=== PATIENT | female | born 1970 | race Caucasian/White ===

== ENCOUNTER 2021-08-17 14:17 | Emergency (ER) | payer MEDICARE, OTHER ==
[~2021-08-17] VITALS: Ht 167.6 cm; Wt 61.0 kg
[2021-08-17 14:18] VITALS: BP 154/98
[2021-08-17] MEDS ORDERED: ACETAMINOPHEN 325MG TABLET PO ONE (16:15)
[2021-08-17] MEDS ORDERED: METHOCARBAMOL 500MG TABLET PO ONE (16:15)
[2021-08-17 16:45] LABS: BASOPHILS % 0.5 % (0.0-2.0); EOSINOPHILS % 0.6 % (0.0-5.0); HEMATOCRIT. 37.7 % (36.0-48.0); HEMOGLOBIN. 12.7 g/dL (12.0-16.0); LYMPHOCYTES % 15.8 % (20.0-50.0); MEAN CORPUSCULAR HEMOGLOBIN 30.7 pg (28.0-32.0); MEAN CORPUSCULAR VOLUME 91.5 fL (81.0-99.0); MEAN PLATELET VOLUME 7.3 fl (7.4-10.4); MONOCYTES % 5.9 % (2.0-8.0); NEUTROPHILS % 77.2 % (40.0-76.0); PLATELET 452 x1000/uL (130-400); RED BLOOD CELL COUNT 4.13 mill/uL (4.2-5.4); RED CELL DISTRIBUTION WIDTH 16.1 % (11.6-14.6)
[2021-08-17 16:55] LABS: CHLORIDE 106 mEq/L (98-107)
[2021-08-17 17:06] LABS: B-HCG QUANTITATIVE < 1 mIU/mL (<3)
[2021-08-17] MEDS ORDERED: AZIT500T8 MT (20:34)
== END 2021-08-17 22:11 | disposition home or self-care (01) ==
LOC: ER 14:25
DX: R07.89 Other chest pain (principal)
CPT/HCPCS: 36415; 71045; 71250; 73000; 80053; 83880; 84484; 84702; 85025; 93005; 99285